=== PATIENT | female | born 1980 | race Two or more races ===

== ENCOUNTER 2017-11-24 20:36 | Emergency (ER) | payer SELFPAY ==
[2017-11-24 21:02] LABS: URINE HCG POC HCG NEGATIVE (Negative)
[2017-11-24 21:03] LABS: BILIRUBIN,URINE NEGATIVE (NEG); CLARITY,URINE CLOUDY; COLOR,URINE YELLOW; GLUCOSE,URINE NEGATIVE (NEG); NITRITE,URINE NEGATIVE (NEG); PH,URINE 6.5; PROTEIN,URINE NEGATIVE (NEG-TRACE); UROBILINOGEN,URINE 0.2 mg/dL (0.2 mg/dL)
[2017-11-24 21:06] LABS: NEG OBC UR NEG; POS OBC UR POS; U PREG PATIENT NEGATIVE (NEG)
[2017-11-24 21:14] LABS: BACTERIA,URINE MODERATE /HPF (0-FEW); WBC,URINE >40 /HPF (0-4)
== END 2017-11-24 23:03 | disposition home or self-care (01) ==
LOC: ER 20:36
DX: N39.0 Urinary tract infection, site not specified (principal); R51 Headache
CPT/HCPCS: 74176; 81001; 81025; 84703; 87086; 87186; 99285-25